=== PATIENT | male | born 1980 | race American Indian/Alaskan Native ===

== ENCOUNTER 2017-01-24 17:00 | Emergency (ER) | payer MEDICAID ==
[2017-01-24 17:11] VITALS: BMI 31.6
[2017-01-24 17:13] VITALS: TEMP 99; O2SAT 97
--- NOTE | 2017-01-24 17:30 | ED PDOC ---
Arrival/HPI - General Chief Complaint: Dizziness/Lightheaded Time Seen by Provider: 01/24/17 17:14 - History of Present Illness Narrative History of Present Illness (Text): 36 y/o M c PMHx HTN p/w sore throat x 4 days. Associated with cough, subjective fever, congestion, bitter taste, and lightheadedness. He denies LOC, vomiting, ear pain, stiff neck, dyspnea. Has been taking Theraflu. Past Medical History - Past History Past History: No Previous - Infectious Disease Hx of Infectious Diseases: None - Tetanus Immunization Tetanus Immunization: Unknown - Past Medical History Past Medical History: No Previous - Cardiac Hx Cardiac Disorders: Yes Hx Hypertension: Yes - Pulmonary Hx Respiratory Disorders: No - Neurological Hx Neurological Disorder: No - HEENT Hx HEENT Disorder: No - Renal Hx Renal Disorder: No - Endocrine/Metabolic Hx Endocrine Disorders: No - Hematological/Oncological Hx Blood Disorders: No - Integumentary Hx Dermatological Disorder: No - Musculoskeletal/Rheumatological Hx Musculoskeletal Disorders: No - Gastrointestinal Hx Gastrointestinal Disorders: No - Genitourinary/Gynecological Hx Genitourinary Disorders: No - Psychiatric Hx Psychophysiologic Disorder: No Hx Depression: No Hx Emotional Abuse: No Hx Physical Abuse: No Hx Substance Use: Yes (marijuana) - Past Surgical History Past Surgical History: No Previous - Anesthesia Hx Anesthesia: No - Suicidal Assessment Feels Threatened In Home Enviroment: No Family/Social History Family/Social History: No Known Family HX Smoking Status: Never Smoked Hx Alcohol Use: Yes Frequency of alcohol use: Few days per week Hx Substance Use: Yes (marijuana) Hx Substance Use Treatment: No Allergies/Home Meds Allergies/Adverse Reactions: Allergies No Known Allergies Allergy (Verified 01/24/17 17:10) Review of Systems - Physician Review All systems were reviewed & negative as marked: Yes - Review of Systems Respiratory: Cough. absent: SOB Gastrointestinal: absent: Vomiting Physical Exam - Physical Exam Narrative Physical Exam (Text): Constitutional: No acute distress. Head: Normocephalic. Atraumatic. Eyes: PERRL. ENT: Moist mucous membranes. Pharyngeal erythema, no exudates. Neck: Supple. No nuchal rigidity. Cardiovascular: Regular rate. Chest: No tenderness. Respiratory: Clear to auscultation bilaterally. GI: Soft. Nontender. Nondistended. Back: No CVA tenderness. Musculoskeletal: No tenderness or swelling of extremities. Skin: No rash. Neurologic: Alert, no focal deficit. Vital Signs Temp Pulse Resp BP Pulse Ox 01/24/17 17:11 99 F 84 16 162/108 H 97 Medical Decision Making ED Course and Treatment: Rapid strep, toradol, decadron, reassess. Patient in no acute distress. Will discharge home, f/u PMD, return to ER for dyspnea, syncope, drooling, voice change, or any other problem. - Lab Interpretations Lab Results: Lab Results 01/24/17 18:20: Grp A Beta Strep Ag Negative - Medication Orders Current Medication Orders: Discontinued Medications Dexamethasone (Decadron) 10 mg PO STAT STA Stop: 01/24/17 17:22 Last Admin: 01/24/17 17:42 Dose: 10 mg Ketorolac Tromethamine (Toradol) 60 mg IM STAT STA Stop: 01/24/17 17:21 Last Admin: 01/24/17 17:41 Dose: 60 mg Disposition/Present on Arrival - Present on Arrival Any Indicators Present on Arrival: No History of DVT/PE: No History of Uncontrolled Diabetes: No Urinary Catheter: No History of Decub. Ulcer: No History Surgical Site Infection Following: None - Disposition Have Diagnosis and Disposition been Completed?: Yes Diagnosis: Pharyngitis Disposition: HOME/ ROUTINE Disposition Time: 18:54 Patient Plan: Discharge Condition: STABLE Discharge Instructions (ExitCare): Pharyngitis (ED) Prescriptions: Ibuprofen [Motrin] 600 mg PO Q6 #25 tab Referrals: Rocky Orozco MD [Primary Care Provider] - Follow up with primary
[2017-01-24 19:03] VITALS: BP 158/98; PULSE 79; RESP 18
== END 2017-01-24 19:10 | disposition home or self-care (01) ==
LOC: ED 17:00
DX: J02.9 Acute pharyngitis, unspecified (principal); I10 Essential (primary) hypertension
CPT/HCPCS: 87070; 87430; 96372; 99284; J1885; J8540